=== PATIENT | female | born 1985 | race Caucasian/White ===

== ENCOUNTER 2017-12-11 15:25 | Inpatient (IN) | payer OTHER ==
[~2017-12-11] VITALS: Ht 165.1 cm; Wt 67.0 kg
[~2017-12-11 15:25] MED LIST: ENDOCET 5-3251 EACH PO; IBUPROFEN800 MG PO; PRENATAL TABLE1 EAC3 PO
[2017-12-11] MEDS ORDERED: MOTRIN800 MG PO (16:03)
[2017-12-11 16:21] LABS: BASOPHIL (%) 0.1 % (0-1); EOSINOPHIL (%) 0.1 % (0-5); HEMATOCRIT 37.3 % (36.0-46.0); HEMOGLOBIN 12.6 G/DL (11.9-15.5); IMMATURE GRANULOCYTE (%) 0.7 % (0.0-0.7); LYMPHOCYTE (%) 7.3 % (15-42); LYMPHOCYTE COUNT 1.1 K/uL (1.0-2.8); MCH 29.6 PG (29.0-34.0); MCHC 33.8 G/DL (30.0-36.0); MCV 87.6 FL (83-99); MONOCYTE (%) 4.2 % (3-12); MONOCYTE COUNT 0.6 K/uL (0-0.8); NEUTROPHIL (%) 87.6 % (45-76); NEUTROPHIL COUNT 12.6 K/uL (1.8-6.4); NRBC (%) 0.3 /100 WBC (0-0); PLATELET COUNT 140 K/uL (156-360); RBC DIS.WIDTH-CV 13.2 % (11.8-14.6); RBC DIS.WIDTH-SD 42.3 % (39-53); RED BLOOD COUNT 4.26 M/uL (3.80-5.20); WHITE BLOOD COUNT 14.4 K/uL (4.1-10.2)
[2017-12-11 16:48] VITALS: BP 132/80
[2017-12-11 17:03] VITALS: BP 137/81
[2017-12-11 22:29] VITALS: BP 132/79
[2017-12-12 07:42] VITALS: BP 113/70
[2017-12-12 23:35] VITALS: BP 127/79
[2017-12-13] MEDS ORDERED: IBUPROFEN800 MG PO (09:25)
== END 2017-12-13 14:52 | disposition home or self-care (01) | DRG 775 ==
LOC: LDRP-OP 15:25 → 2WEST 15:26
PROVIDERS: Nurse Practitioner
PROC: 10E0XZZ Delivery of Products of Conception, External Approach (ICD-10-PCS; principal; 2017-12-11)
DX: O99.12 Other diseases of the blood and blood-forming organs and certain disorders involving the immune mechanism complicating childbirth (principal); Z37.0 Single live birth; D69.3 Immune thrombocytopenic purpura; Z3A.39 39 weeks gestation of pregnancy
CPT/HCPCS: 85025; J2590